=== PATIENT | female | born 1950 | race Caucasian/White ===

== ENCOUNTER 2018-11-03 14:42 | Emergency (ER) | payer OTHER ==
[2018-11-03 14:57] VITALS: BP 176/86
[2018-11-03] MEDS ORDERED: Ibuprofen TAB* 600 MG PO ONE (15:12)
--- NOTE | 2018-11-03 15:17 | UC ---
Hand/Wrist HPI - HPI Summary HPI Summary: 68-year-old woman comes in with a chief complaint of right wrist pain. Been going on for about 2 weeks. No known trauma. A lot worse over the last week. Abduction and abduction of the wrist make the pain the worst. Pain is on the distal radial aspect. It also hurts more when she flexes and extends her right thumb. ICE helps the pain briefly. - History Of Current Complaint Chief Complaint: UCUpperExtremity Stated Complaint: swollen WRIST Time Seen by Provider: 11/03/18 15:08 Pain Intensity: 5 - Allergies/Home Medications Allergies/Adverse Reactions: Allergies Allergy/AdvReac Type Severity Reaction Status Date / Time sulfamethoxazole Allergy See Comment Verified 11/03/18 14:59 [From Bactrim] trimethoprim [From Bactrim] Allergy See Comment Verified 11/03/18 14:59 Home Medications: Home Medications Glimepiride 2 mg PO DAILY 11/03/18 [History Confirmed 11/03/18] Vit A/Vit C/Vit E/Zinc/Copper [Preservision Areds Softgel] 1 each PO DAILY 11/03 [History Confirmed 11/03/18] PMH/Surg Hx/FS Hx/Imm Hx Previously Healthy: Yes - Surgical History Surgical History: Yes Surgery Procedure, Year, and Place: TUBAL LIGATION;. GALLBLADDER REMOVAL;. CANCEROUS TISSUE REMOVED FROM NOSE;CATARACT SURGERY X2 - Family History Known Family History: Positive: None, Non-Contributory - Social History Alcohol Use: Occasionally Substance Use Type: None Smoking Status (MU): Former Smoker Amount Used/How Often: 1/2 PPD Length of Time of Smoking/Using Tobacco: 20 YEARS Have You Smoked in the Last Year: No When Did the Patient Quit Smoking/Using Tobacco: 1995 Review of Systems All Other Systems Reviewed And Are Negative: Yes Constitutional: Positive: Negative Skin: Positive: Negative Eyes: Positive: Negative ENT: Positive: Negative Respiratory: Positive: Negative Cardiovascular: Positive: Negative Gastrointestinal: Positive: Negative Motor: Positive: Negative Neurovascular: Positive: Negative Musculoskeletal: Positive: Other: - SEE HPI Neurological: Positive: Negative Psychological: Positive: Negative Is Patient Immunocompromised?: No Physical Exam Triage Information Reviewed: Yes Appearance: Well-Appearing, No Pain Distress, Well-Nourished Vital Signs: Initial Vital Signs Temp 97.4 F 11/03/18 14:48 Pulse 78 11/03/18 14:48 Resp 16 11/03/18 14:48 BP 176/86 11/03/18 14:48 Pulse Ox 98 11/03/18 14:48 Vital Signs Reviewed: Yes Eye Exam: Normal Eyes: Positive: Conjunctiva Clear Neck exam: Normal Neck: Positive: Supple Respiratory: Positive: No respiratory distress Musculoskeletal: Positive: Other: - Right wrist is tender to palpation on the radial aspect to the base of the thumb and the distal radius. No erythema normal pulses normal capillary refill no sensation deficit. There is full range of motion of the fingers to include the thumb and also of the wrist. Pain is the worst with abduction and abduction of the wrist and palpation of the distal radius. Neurological Exam: Normal Neurological: Positive: Alert, Muscle Tone Normal Psychological Exam: Normal Psychological: Positive: Age Appropriate Behavior Skin Exam: Normal Hand/Wrist Course/Dx - Course Course Of Treatment: Order Information: WRIST RIGHT 3+ VWS. Accession Number: [id number]. CPT: 99929. HISTORY: PAIN RADIAL ASPECT. COMPARISONS: None. VIEWS: 3 , Frontal, lateral, and oblique views of the right wrist. FINDINGS: BONE DENSITY: Normal. BONES: There is no displaced fracture. JOINTS: There is no arthropathy. ALIGNMENT: There is no dislocation. SOFT TISSUES: Unremarkable. OTHER FINDINGS: None. IMPRESSION: NO ACUTE OSSEOUS INJURY. IF SYMPTOMS PERSIST, RECOMMEND REPEAT IMAGING. . <Electronically signed by Immanuel Griffin MD in OV> 11/03/18 1532. I discussed the x-ray report with the patient. For the wrist tendinitis nursing placed a cock-up splint and the patient was neurovascularly intact after placement of the splint. Plan will be ibuprofen and ice and rest. Spoke with the patient and she can get into physical therapy through [place] which is the plan. - Differential Dx/Diagnosis Provider Diagnosis: Right wrist tendonitis Discharge - Sign-Out/Discharge Documenting (check all that apply): Patient Departure All imaging exams completed and their final reports reviewed: Yes - Discharge Plan Condition: Stable Disposition: HOME Patient Education Materials: Tendinitis (ED) Referrals: Ele Jason MD [Primary Care Provider] - Additional Instructions: FOLLOW UP WITH YOUR DOCTOR. START PHYSICAL THERAPY. TAKE IBUPROFEN 600MG THREE TIMES A DAY WITH FOOD. GET RECHECKED FOR ANY WORSENING OF YOUR CONDITION OR QUESTIONS OR CONCERNS. - Billing Disposition and Condition Condition: STABLE Disposition: Home
== END 2018-11-03 16:02 | disposition home or self-care (01) ==
LOC: UCEAST 14:42
DX: M77.9 Enthesopathy, unspecified (principal); Z88.2 Allergy status to sulfonamides; Z87.891 Personal history of nicotine dependence
CPT/HCPCS: 99213; A9270-GY; G0463

== ENCOUNTER 2019-01-02 11:53 | Day surgery (SDC) | payer OTHER ==
[~2019-01-02 11:53] MED LIST: Buffered Lidocaine 1% SYRIN* 1 ML/SYRINGE INTRADERM ONE; Famotidine IV* 10 MG/ML 2 ML (20 mg) IV ONE; Lactated Ringers 1000 ML Bag* 1,000 ML IV SCH
[2019-01-02] MEDS ORDERED: Midazolam* 1 MG/ML 2 ML VIAL (2 MG) ONE (12:18)
[2019-01-02] MEDS ORDERED: fentaNYL* 50 MCG/ML 2 ML VIAL (100 MCG VIAL) ONE (12:18)
[2019-01-02] MEDS ORDERED: Famotidine IV* 10 MG/ML 2 ML (20 mg) ONE (12:23)
[2019-01-02] MEDS ORDERED: ceFAZolin 2 GM PREMIX in ORs 2 GM/50 ML BAG IVPB ONE (12:24)
[2019-01-02] MEDS ORDERED: Bupivacaine 0.5%* 50 ML VIAL ONE (14:05)
[2019-01-02] MEDS ORDERED: Lidocaine 1% INJ* 10 MG/ML 30 ML SDV ONE (14:05)
[2019-01-02] MEDS ORDERED: Betamethasone INJ* 6 MG/ML 5 ML VIAL (30 MG) ONE (14:29)
[2019-01-02] MEDS ORDERED: Ketorolac INJ* 30 MG/ML 1 ML VIAL ONE (14:32)
[2019-01-02] MEDS ORDERED: Ondansetron INJ* 2 MG/ML VIAL ONE (14:32)
[2019-01-02] MEDS ORDERED: Propofol* 10 MG/ML 20 ML BTL ONE (14:32)
[2019-01-02] MEDS ORDERED: Lidocaine 2% PF * 5 ML VIAL ONE (14:33)
[2019-01-02] MEDS ORDERED: Acetaminophen TAB* 325 MG PO PRN (15:23)
[2019-01-02 15:47] VITALS: BP 145/80
--- NOTE | 2019-01-02 21:17 | OP ---
DATE OF OPERATION: 01/02/19 - [facility] DATE OF : 46 SURGEON: Sterling Smith MD. CONSULTANT INTERNSHIP: GILBERT Copeland ANESTHESIOLOGIST: Dr. Ramírez. ANESTHESIA: Local MAC. PRE-OP DIAGNOSES: 1. Right de Quervain disease. 2. Right middle trigger finger. POST-OP DIAGNOSES: 1. Right wrist de Quervain disease. 2. Severe tenosynovitis, right first dorsal compartment tendon sheath. 3. Right middle trigger finger. OPERATIVE PROCEDURE: 1. Right wrist de Quervain release. 2. Right first dorsal compartment tenosynovectomy. 3. Right middle trigger finger steroid injection. ESTIMATED BLOOD LOSS: 2 mL. COMPLICATIONS: None. FINDINGS: See above and below. DESCRIPTION OF PROCEDURE: Natacha was seen in the preoperative holding area. The correct side, site, and procedure were identified. We came back to the operating room where the arm was prepped and draped in the usual fashion and time-out was performed. I did infiltrate Marcaine out on the operative area prior to draping. The arm was exsanguinated and the tourniquet was inflated to 250 mmHg. I made a 1 to 2 cm transverse incision over the first dorsal compartment tendon sheath just proximal to the radial styloid. Dissection was carried down bluntly and full- thickness flaps were raised off the tendon sheath. The tendon sheath was then incised along the course of the tendons. The tendon sheath was very thickened and it was extremely tight all about the tendons. Immediately upon incising the tendon sheath along the dorsal margin, I noted an abundant amount of tenosynovitis all about the first dorsal compartment tendon sheath tendons. It was difficult to see the tendons, there was so much tenosynovitis. I went ahead and took some time and I excised all of that tenosynovitis and I sent some of it off as a specimen. Once I had the tendons looking nice and clean, I went ahead and irrigated out the wound and skin was closed with 4-0 Monocryl and Steri-Strips. The right middle finger A1 tavo area was injected with 1 mL of 1% lidocaine and 6 mg of betamethasone. The steroid was put all around and in the tendon sheath. Once the procedure was performed, we dressed the wounds with soft dressings and the tourniquet was deflated. The hand pinked up immediately. She was taken to the recovery room in stable condition. [id number]/[facility] #: [id number] MINDA
== END 2019-01-02 16:04 | disposition home or self-care (01) ==
LOC: OR 11:53
PROVIDERS: ATTEND Orthopaedic Surgery Hand Surgery
DX: M65.4 Radial styloid tenosynovitis [de Quervain] (principal); M65.331 Trigger finger, right middle finger; G47.33 Obstructive sleep apnea (adult) (pediatric); E11.9 Type 2 diabetes mellitus without complications; Z79.84 Long term (current) use of oral hypoglycemic drugs; Z87.891 Personal history of nicotine dependence
CPT/HCPCS: 88304; J0690; J0702; J1885; J2250; J2405; J2704; J3010

== ENCOUNTER 2019-07-23 17:16 | Emergency (ER) | payer OTHER ==
[2019-07-23 17:21] VITALS: BP 194/77
--- NOTE | 2019-07-23 17:38 | ED ---
Lower Extremity - HPI Summary HPI Summary: Patient complains of chronic left knee pain since October 2018, worse for the past 2 days. Patient has been evaluated by orthopedics Dr. Curtis and Dr. Smith in October 2018 and May 2019 and was given injections, which patient states did not help. Patient denies new trauma, also states she played golf this morning. Denies any other pain, injury or symptoms. - History of Current Complaint Chief Complaint: EDExtremityLower Stated Complaint: LEFT KNEE INJURY PER PT Time Seen by Provider: 07/23/19 17:36 Hx Obtained From: Patient Mechanism Of Injury: Unknown Onset/Duration: Weeks Severity Initially: Mild Severity Currently: Severe Pain Intensity: 8 Pain Scale Used: 0-10 Numeric Timing: Constant Location: Is Discrete @ Character Of Pain: Dull, Aching, Throbbing Associated Signs And Symptoms: Positive: Swelling, Knee Pain Aggravating Factor(s): Standing, Ambulation, Movement Alleviating Factor(s): Rest, Elevation Able to Bear Weight: Yes - Allergies/Home Medications Allergies/Adverse Reactions: Allergies Allergy/AdvReac Type Severity Reaction Status Date / Time losartan Allergy MULTI Verified 01/02/19 12:31 SYSTEM PROBLEMS sulfamethoxazole Allergy See Comment Verified 01/02/19 12:31 [From Bactrim] trimethoprim [From Bactrim] Allergy See Comment Verified 01/02/19 12:31 PMH/Surg Hx/FS Hx/Imm Hx Endocrine/Hematology History: Reports: Hx Diabetes - Type II- ON ORAL MEDICATION FOR Denies: Hx Thyroid Disease Cardiovascular History: Reports: Hx Hypertension Denies: Hx Pacemaker/ICD Respiratory History: Reports: Hx Sleep Apnea Denies: Hx Asthma, Hx Chronic Obstructive Pulmonary Disease (COPD) GI History: Denies: Hx Ulcer Musculoskeletal History: Reports: Hx Arthritis - KNEES, LEFT GREAT TOE, Hx Bursitis - HX OF SHOULDER- IN THE PAST, Hx Tendonitis - SPORT RELATED IN THE PAST Sensory History: Reports: Hx Cataracts - BILATERAL, Hx Contacts or Glasses - GLASSES Denies: Hx Hearing Aid Opthamlomology History: Reports: Hx Cataracts - BILATERAL, Hx Contacts or Glasses - GLASSES EENT History: Denies: Hx Deafness Neurological History: Denies: Hx Dementia Psychiatric History: Denies: Hx Panic Disorder - Surgical History Surgery Procedure, Year, and Place: TUBAL LIGATION;. GALLBLADDER REMOVAL;. CANCEROUS TISSUE REMOVED FROM NOSE;CATARACT SURGERY X2 Hx Anesthesia Reactions: No Infectious Disease History: No Infectious Disease History: Denies: Hx Hepatitis, Hx Human Immunodeficiency Virus (HIV), Traveled Outside the [place] in Last 30 Days - Family History Known Family History: Positive: None, Non-Contributory - Social History Alcohol Use: Occasionally Alcohol Amount: GLASS OF WINE Substance Use Type: Reports: None Smoking Status (MU): Former Smoker Amount Used/How Often: 1/2 PPD X 20 YEARS Length of Time of Smoking/Using Tobacco: 20 YEARS Have You Smoked in the Last Year: No Review of Systems Constitutional: Negative Eyes: Negative ENT: Negative Cardiovascular: Negative Respiratory: Negative Gastrointestinal: Negative Genitourinary: Negative Musculoskeletal: Other Skin: Negative Neurological: Negative Psychological: Normal All Other Systems Reviewed And Are Negative: Yes Physical Exam - Summary Physical Exam Summary: Mild swelling to medial left knee. Tenderness to medial left knee. Full range of motion of left knee with pain. Nontender. PMS intact distally. No ecchymosis, erythema, deformity, extra warmth noted. Triage Information Reviewed: Yes Vital Signs On Initial Exam: Initial Vitals Temp Pulse Resp BP Pulse Ox 97.4 F 71 16 194/77 98 07/23/19 17:17 07/23/19 17:17 07/23/19 17:17 07/23/19 17:17 07/23/19 17:17 Vital Signs Reviewed: Yes Appearance: Positive: Well-Appearing Skin: Positive: Warm Head/Face: Positive: Normal Head/Face Inspection Eyes: Positive: Normal Neck: Positive: Supple Respiratory/Lung Sounds: Positive: Clear to Auscultation Cardiovascular: Positive: Normal Abdomen Description: Positive: Nontender Musculoskeletal: Positive: Normal Neurological: Positive: Normal Psychiatric: Positive: Normal AVPU Assessment: Alert - Bertha Coma Scale Best Eye Response: 4 - Spontaneous Best Motor Response: 6 - Obeys Commands Best Verbal Response: 5 - Oriented Coma Scale Total: 15 Diagnostics - Vital Signs Vital Signs Temp Pulse Resp BP Pulse Ox 07/23/19 17:17 97.4 F 71 16 194/77 98 - Laboratory Lab Statement: Any lab studies that have been ordered have been reviewed, and results considered in the medical decision making process. Lower Extremity Course/Dx - Course Course Of Treatment: Patient complains of chronic left knee pain since October 2018, worse for the past 2 days. Patient has been evaluated by orthopedics Dr. Curtis and Dr. Smith in October 2018 and May 2019 and was given injections, which patient states did not help. Patient denies new trauma, also states she played golf this morning. Denies any other pain, injury or symptoms. Vital signs within normal limits. No indication for x-ray. Advised patient follow up with orthopedics again. - Diagnoses Provider Diagnoses: Chronic pain of left knee Discharge ED - Sign-Out/Discharge Documenting (check all that apply): Patient Departure Patient Received Moderate/Deep Sedation with Procedure: No - Discharge Plan Condition: Stable Disposition: HOME Patient Education Materials: Knee Pain (ED) Referrals: Ele Jason MD [Primary Care Provider] - Joce Donato MD [Medical Doctor] - Additional Instructions: Follow-up with orthopedics tomorrow morning for further evaluation of left knee pain. Take naproxen 500 mg twice a day for the next 2 days. Ice 15 minutes every hour. - Billing Disposition and Condition Condition: STABLE Disposition: Home - Attestation Statements Provider Attestation: I was available for consult. This patient was seen by the TAYLOR. The patient was not presented to, seen by, or examined by me. Xavier Burnett MD
== END 2019-07-23 18:34 | disposition home or self-care (01) ==
LOC: ED 17:16
DX: G89.29 Other chronic pain (principal); M25.562 Pain in left knee; E11.9 Type 2 diabetes mellitus without complications; Z79.84 Long term (current) use of oral hypoglycemic drugs; I10 Essential (primary) hypertension; Z88.2 Allergy status to sulfonamides; Z88.8 Allergy status to other drugs, medicaments and biological substances; Z87.891 Personal history of nicotine dependence
CPT/HCPCS: 99282

== ENCOUNTER → 2019-09-07 05:38 | Day surgery (SDC) | payer OTHER ==
--- NOTE | 2019-08-25 10:33 | HP ---
HISTORY AND PHYSICAL: DATE OF ADMISSION/SURGERY: 09/07/19 DATE OF OFFICE VISIT: 08/25/19 SURGEON: Paula Curtis MD* (dictated by GILBERT Barber). PROCEDURE: Left knee arthroscopy with partial meniscectomy, possible chondroplasty, possible synovectomy, and possible plica excision. CHIEF COMPLAINT: Left knee pain. HISTORY OF PRESENT ILLNESS: Ms. Mcguire is a 69-year-old female with complaints of left knee pain. She has failed conservative treatment and an MRI confirmed a medial meniscus tear. She has elected to proceed with a left knee arthroscopy. PAST MEDICAL HISTORY: Macular degeneration, diabetes, and basal cell carcinoma. PAST SURGICAL HISTORY: Cholecystectomy, tubal ligation, and right wrist de Quervain's release. CURRENT MEDICATIONS: 1. Glimepiride 2 mg daily. 2. PreserVision AREDS plus multivitamin 2 tabs twice a day. ALLERGIES: To BACTRIM and LOSARTAN. FAMILY HISTORY: Diabetes. SOCIAL HISTORY: She is a 69-year-old female, she lives with her . She does not smoke or use drugs. She uses occasional alcohol. REVIEW OF SYSTEMS: A complete 14-point review of systems was reviewed with the patient, is positive for diabetes. She denies history of DVT, PE, hepatitis, HIV, or anesthesia problems. PHYSICAL EXAMINATION GENERAL: She is well developed, well nourished, in no acute distress. VITAL SIGNS: She stands 63 inches tall, weighs 186 pounds. Her blood pressure is 128/70, heart rate is 66. HEENT: Normocephalic, atraumatic. NECK: Supple. No palpable lymph nodes. PULMONARY: Lungs are clear to auscultation bilaterally. CARDIAC: Regular rate and rhythm. Strong S1, S2. ABDOMEN: Soft, nontender, nondistended. NEUROLOGIC: She is alert and oriented x3. MUSCULOSKELETAL: Left lower extremity: The skin is intact. There are no open wounds or abrasions. There is a moderate effusion of the left knee joint. Positive Apley's and Shelly's. Negative Katie's. She has palpable Ramirez's cyst. Range of motion is 10 to 120 degrees of flexion. No varus or valgus instability. She has a 2+ dorsalis pedis pulse. She is able to dorsiflex and plantarflex. ASSESSMENT AND PLAN: Ms. Mcguire is a 69-year-old female with complaints of left knee pain secondary to meniscus tear. She has failed conservative treatment and elected to proceed with a left knee arthroscopy with partial meniscectomy, possible chondroplasty, possible synovectomy, and possible plica excision. The surgery is scheduled for 09/07/[address] Curtis discussed the risks and benefits of the surgery at today's visit and all of her questions were answered. She will follow up with Dr. Curtis 2 weeks after the surgery. GILBERT BARBER [id number]/[facility] #: [id number] MTDChula
[~2019-09-07 05:38] MED LIST changes: +Acetaminophen TAB* 325 MG ONE; +Acetaminophen TAB* 325 MG PO PRN; +Bupivacaine 0.5%* 50 ML MDV VIAL ONE; +Dexamethasone IV* 4 MG/ML 1 ML (4 MG) ONE; +DiMENhydriNATE IV* 50 MG/ML VIAL IV PUSH PRN; +EPINEPHRINE 1 MG/ML 1 ML VIAL ONE; +Etomidate* 2 MG/ML 10 ML VIAL ONE; -Famotidine IV* 10 MG/ML 2 ML (20 mg) IV ONE; +Ketorolac INJ* 30 MG/ML 1 ML VIAL ONE; +Lidocaine 2% PF * 5 ML VIAL ONE; +Metoclopramide IV* 5 MG/ML 2 ML VIAL ONE; +Midazolam* 1 MG/ML 2 ML VIAL (2 MG) ONE; +Naloxone* 0.4 MG/ML 1 ML VIAL IV PRN; +Ondansetron INJ* 2 MG/ML VIAL ONE; +Phenylephrine 10 MG/ML VIAL* 1 ML VIAL ONE; +Propofol* 10 MG/ML 20 ML BTL ONE; +ROPIVACAINE 5 MG/ML 30 ML BTL (0.5%) ONE; +ceFAZolin 2 GM PREMIX in ORs 2 GM/50 ML BAG ONE; +fentaNYL* 50 MCG/ML 2 ML VIAL (100 MCG VIAL) ONE; +methylPREDNISolone ACETATE 80* 80 MG/ML 1 ML VIAL ONE; +oxyCODONE TAB* 5 MG TAB ONE; +oxyCODONE TAB* 5 MG TAB PO PRN
[2019-09-07] MEDS: fentaNYL* 50 MCG/ML 2 ML VIAL (100 MCG VIAL) IV PRN ×2 (08:48→09:14)
[2019-09-07 10:56] VITALS: BP 140/75
--- NOTE | 2019-09-07 22:04 | OP ---
OPERATIVE REPORT: DATE OF OPERATION: 09/07/19 DATE OF : 46 SURGEON: Paula Curtis MD. GROCERY STORE MANAGER: GILBERT Calvillo. Mr. Martin did help throughout the procedure with preparation of the leg, wound retraction, manipulat ion of the knee, and wound closure. ANESTHESIOLOGIST: Dr. Sotelo. ANESTHESIA: General. PRE-OP DIAGNOSES: 1. Left knee medial meniscal tear. 2. Yojj-dj-ugkcpldp osteoarthritis. POST-OP DIAGNOSES: 1. Left knee medial meniscal tear. 2. Whgevqfe-xf-ttdcma degenerative osteoarthritis. OPERATIVE PROCEDURE: Left knee arthroscopy with partial medial meniscectomy. COMPLICATIONS: None. SPECIMENS: None. ESTIMATED BLOOD LOSS: Less than 25 cc. BRIEF HISTORY/INDICATIONS: Ms. Mcguire is a 69-year-old female who had the acute onset of mechanica l symptoms involving the medial joint line over the last 3 to 6 months. She failed conservative henry tment. MRI confirmed a medial meniscal tear. Due to continued pain and failure of conservative treat ment, she elected to undergo left knee arthroscopy with partial meniscectomy. Informed consent was o btained from the patient. She understood the risks of surgery included but were not limited to bleed ing, infection, damage to nearby structures, continued pain, need for further surgery, retear of the meniscus, progression of arthritis, stroke, heart attack, blood clot, and . She wished to proce ed. INTRAOPERATIVE FINDINGS: Intraoperatively, the patient had a complex parrot-beak type tear of the po steromedial meniscus. This is in the white-red zone. This involved the posterior 50% of the medial meniscus. Unfortunately, she was noted to have grade 3 and 4 Outerbridge cartilage changes in the me dial and patellofemoral compartments. There was exposed subchondral bone along the trochlear groove of the femur as well as along the medial femoral condyle and medial tibial plateau. DESCRIPTION OF PROCEDURE: Ms. Mcguire was identified in the preanesthesia unit. Her left lower extr emity was marked as the correct operative side. Informed consent was signed and placed in the chart. The patient was taken to the operating room and placed under anesthesia without complications. The left lower extremity was prepped and draped in the usual sterile fashion. Preop time-out was made t o correctly identify the patient, side, and site. Appropriate perioperative antibiotics were given w ithin 1 hour of the incision. A 0.5 cm standard anterolateral portal incision was made with a 10-blade and carried down through the capsule. A trocar was introduced. As soon as the light and water sources were turned on, there was immediate visualization of the suprapatellar pouch. A tour of the knee joint was performed. The willson prapatellar pouch showed no obvious abnormalities. The patellofemoral joint had exposed subchondral bone along the trochlear groove of the femur and the medial patellar facet. These were grade 3 and 4 Outerbridge cartilage changes. The medial gutter showed no significant plica or loose body. The me dial compartment showed a complex tear in the medial meniscus with a tear involving the posterior 50% of the medial meniscus. This was mainly in the white-red zone with some anterior displacement. The medial femoral condyle and medial tibial plateau had some exposed subchondral bone and grade 3 and 4 Outerbridge cartilage changes. The ACL and PCL appeared to be intact. The knee was placed in a figu re-of-four position. No obvious lateral meniscal tear was noted. No significant degenerative change s were noted in the lateral compartment. Under direct visualization, a medial portal incision was made with a 10-blade. A probe was introduce d and a second tour of the knee joint was performed. There were no additional findings noted. The shaver and straight biter were used to perform partial medial meniscectomy. The tear was carefull y excised. A smooth border of the medial meniscus was obtained in the white-red zone. Further probi ng of the medial meniscus showed no additional tear. The knee was copiously irrigated with sterile s fifi. All instruments were carefully removed. The incisions were closed using 3-0 nylon suture. The incisions were covered with sterile Xeroform, 4x4s, and Webril. Lance wrap and cold pack were plac ed over this. The patient's anesthesia was reversed without difficulty. She was taken to the PACU i n stable condition. Intended weightbearing will be weightbearing as tolerated. Intended DVT prophyl axis will be aspirin. She will follow up in 2 weeks' time for suture removal. [id number]/[facility] #: [id number]
== END | disposition home or self-care (01) ==
LOC: OR 05:38
PROVIDERS: ATTEND Orthopaedic Surgery Adult Reconstructive Orthopaedic Surgery
DX: S83.242A Other tear of medial meniscus, current injury, left knee, initial encounter (principal); X58.XXXA Exposure to other specified factors, initial encounter; Y92.9 Unspecified place or not applicable; M17.12 Unilateral primary osteoarthritis, left knee; G47.33 Obstructive sleep apnea (adult) (pediatric); Z85.828 Personal history of other malignant neoplasm of skin; E11.9 Type 2 diabetes mellitus without complications; Z79.84 Long term (current) use of oral hypoglycemic drugs; R01.1 Cardiac murmur, unspecified
CPT/HCPCS: A9270-GY; J0690; J1040; J1100; J1885; J2250; J2405; J2704; J2765; J2795; J3010; J3490

== ENCOUNTER 2019-12-10 10:13 | Emergency (ER) | payer OTHER ==
[2019-12-10 10:29] VITALS: BP 148/64
[2019-12-10 10:51] LABS: Influenza A Molecular NEGATIVE (Negative); Influenza B Molecular NEGATIVE (Negative)
--- NOTE | 2019-12-10 10:51 | UC ---
Throat Pain/Nasal Leonard HPI - HPI Summary HPI Summary: 69-year-old woman comes in with a chief complaints of upper respiratory tract infection symptoms for 2 days. She has some rhinorrhea cough with yellow sputum production. Does have a sore throat. Has tried some pgrz-dln-yavvvkf medicines which does help. - History of Current Complaint Chief Complaint: UCGeneralIllness Stated Complaint: SORE THROAT Time Seen by Provider: 12/10/19 10:38 Pain Intensity: 4 - Allergies/Home Medications Allergies/Adverse Reactions: Allergies Allergy/AdvReac Type Severity Reaction Status Date / Time losartan Allergy MULTI Verified 12/10/19 10:24 SYSTEM PROBLEMS sulfamethoxazole Allergy See Comment Verified 12/10/19 10:24 [From Bactrim] trimethoprim [From Bactrim] Allergy See Comment Verified 12/10/19 10:24 PMH/Surg Hx/FS Hx/Imm Hx Previously Healthy: Yes Endocrine History: Diabetes - Surgical History Surgical History: Yes Surgery Procedure, Year, and Place: TUBAL LIGATION;. GALLBLADDER REMOVAL;. CANCEROUS TISSUE REMOVED FROM NOSE;. BILATERAL CATARACT SURGERY. RIGHT WRIST SURGERY [facility] 2019. L [facility] 2019 - Family History Known Family History: Positive: None, Non-Contributory - Social History Alcohol Use: None Alcohol Amount: GLASS OF WINE Substance Use Type: None Smoking Status (MU): Former Smoker Amount Used/How Often: 1/2 PPD X 20 YEARS Length of Time of Smoking/Using Tobacco: 20 YEARS Have You Smoked in the Last Year: No When Did the Patient Quit Smoking/Using Tobacco: 1995 Review of Systems All Other Systems Reviewed And Are Negative: Yes Constitutional: Positive: Other - SEE HPI Skin: Positive: Negative Eyes: Positive: Negative ENT: Positive: Sore Throat, Nasal Discharge, Sinus Congestion Respiratory: Positive: Cough Cardiovascular: Positive: Negative Gastrointestinal: Positive: Negative Motor: Positive: Negative Neurovascular: Positive: Negative Musculoskeletal: Positive: Negative Neurological: Positive: Negative Psychological: Positive: Negative Is Patient Immunocompromised?: No Physical Exam Triage Information Reviewed: Yes Appearance: No Pain Distress, Well-Nourished, Ill-Appearing - MILD Vital Signs: Initial Vital Signs Temp 98 F 12/10/19 10:24 Pulse 84 12/10/19 10:24 Resp 18 12/10/19 10:24 BP 148/64 12/10/19 10:24 Pulse Ox 98 12/10/19 10:24 Vital Signs Reviewed: Yes Eye Exam: Normal Eyes: Positive: Conjunctiva Clear ENT: Positive: Pharyngeal erythema, Nasal congestion, Nasal drainage, TMs normal Neck: Positive: Supple Respiratory: Positive: Lungs clear, Normal breath sounds, No respiratory distress Cardiovascular: Positive: RRR Musculoskeletal: Positive: Strength Intact, ROM Intact Neurological: Positive: Alert, Muscle Tone Normal Psychological: Positive: Age Appropriate Behavior Skin Exam: Normal Throat Pain/Nasal Course/Dx - Differential Dx/Diagnosis Provider Diagnosis: Upper respiratory infection Discharge ED - Sign-Out/Discharge Documenting (check all that apply): Patient Departure All imaging exams completed and their final reports reviewed: No Studies - Discharge Plan Condition: Stable Disposition: HOME Patient Education Materials: Upper Respiratory Infection (ED) Referrals: Ele Jason MD [Primary Care Provider] - Additional Instructions: FOLLOW UP WITH YOUR DOCTOR IF NOT COMPLETELY IMPROVED. GET REEVALUATED SOONER IF NOT IMPROVED OR WORSE OR ANY QUESTIONS OR CONCERNS. - Billing Disposition and Condition Condition: STABLE Disposition: Home
== END 2019-12-10 11:08 | disposition home or self-care (01) ==
LOC: UCEAST 10:13
DX: J06.9 Acute upper respiratory infection, unspecified (principal); E11.9 Type 2 diabetes mellitus without complications; Z87.891 Personal history of nicotine dependence; Z88.8 Allergy status to other drugs, medicaments and biological substances; Z88.2 Allergy status to sulfonamides
CPT/HCPCS: 87651; 99211; G0463

== ENCOUNTER 2024-12-15 07:53 | Observation (INO) ==
[~2024-12-15 07:53] MED LIST changes: -Acetaminophen TAB* 325 MG ONE; -Acetaminophen TAB* 325 MG PO PRN; -Buffered Lidocaine 1% SYRIN* 1 ML/SYRINGE INTRADERM ONE; -Bupivacaine 0.5%* 50 ML MDV VIAL ONE; -Dexamethasone IV* 4 MG/ML 1 ML (4 MG) ONE; -DiMENhydriNATE IV* 50 MG/ML VIAL IV PUSH PRN; -EPINEPHRINE 1 MG/ML 1 ML VIAL ONE; -Etomidate* 2 MG/ML 10 ML VIAL ONE; -Ketorolac INJ* 30 MG/ML 1 ML VIAL ONE; -Lactated Ringers 1000 ML Bag* 1,000 ML IV SCH; -Lidocaine 2% PF * 5 ML VIAL ONE; -Metoclopramide IV* 5 MG/ML 2 ML VIAL ONE; -Midazolam* 1 MG/ML 2 ML VIAL (2 MG) ONE; +NS 0.45% 1000 ml BAG 1,000 ML IV SCH; +Naloxone 0.4 mg VIAL 0.4 mg/ml 1 ml VIAL IV PRN; -Naloxone* 0.4 MG/ML 1 ML VIAL IV PRN; -Ondansetron INJ* 2 MG/ML VIAL ONE; -Phenylephrine 10 MG/ML VIAL* 1 ML VIAL ONE; -Propofol* 10 MG/ML 20 ML BTL ONE; -ROPIVACAINE 5 MG/ML 30 ML BTL (0.5%) ONE; -ceFAZolin 2 GM PREMIX in ORs 2 GM/50 ML BAG ONE; -fentaNYL* 50 MCG/ML 2 ML VIAL (100 MCG VIAL) ONE; -methylPREDNISolone ACETATE 80* 80 MG/ML 1 ML VIAL ONE; -oxyCODONE TAB* 5 MG TAB ONE; -oxyCODONE TAB* 5 MG TAB PO PRN
[2024-12-15] MEDS ORDERED: ceFAZolin 2 GM PREMIX 2 GM/50 ML BAG ONE (08:26)
[2024-12-15] MEDS ORDERED: Tranexamic Acid 1 GM/100ML BAG 2,000 MG/200 ML BAG IV ONE (08:26)
[2024-12-15] MEDS ORDERED: Phenylephrine IV 10 MG/ML 1 ml VIAL ONE (08:38)
[2024-12-15] MEDS ORDERED: fentaNYL 100 mcg/2 ml 50 MCG/ML VIAL ONE ×2 (08:44→13:13)
[2024-12-15] MEDS ORDERED: ROPIVACAINE 5 MG/ML 30 ML BTL (0.5%) ONE (08:44)
[2024-12-15] MEDS ORDERED: Midazolam 5 mg/5 ml VIAL 1 mg/ml 5 ml VIAL (5 mg) ONE (08:44)
[2024-12-15] MEDS ORDERED: Ondansetron 4 mg VIAL 2 MG/ML 2 ml VIAL ONE ×2 (08:48→13:13)
[2024-12-15] MEDS ORDERED: Dexamethasone IV 4 MG/ML VIAL 1 ml VIAL ONE (08:48)
[2024-12-15 08:52] LABS: Rapid COVID-19 Molecular Undetected (Undetected)
[2024-12-15] MEDS: Acetaminophen IV 1 GM/100ML 1,000 MG/100 ML BAG IV ONE (08:57)
[2024-12-15] MEDS: Buffered Lidocaine 1% SYRIN 1 ml INTRADERM ONE (08:58)
[2024-12-15] MEDS: Lactated Ringers 1000 ml BAG 1,000 ML IV SCH ×2 (08:59→15:33)
[2024-12-15] MEDS ORDERED: Ondansetron 4 mg VIAL 2 MG/ML 2 ml VIAL IV PRN (11:56)
[2024-12-15] MEDS ORDERED: Calcium Carb (TUMS) 500 mg CHEW TAB PO PRN (11:56)
[2024-12-15] MEDS ORDERED: Lactulose 30 ml UDC PO PRN (11:56)
[2024-12-15] MEDS ORDERED: Morphine 2 MG/ML SYRINGE IV PRN (11:56)
[2024-12-15] MEDS ORDERED: Magnesium Hydroxide LIQ 30 ML UDC PO PRN (11:56)
[2024-12-15] MEDS ORDERED: Ondansetron ODT 4 mg TAB 4 MG TAB PO PRN (11:56)
[2024-12-15] MEDS ORDERED: Propofol 10 MG/ML 20 ML BTL ONE (12:46)
[2024-12-15] MEDS: Ondansetron 4 mg VIAL 2 MG/ML 2 ml VIAL IV PRN (13:15)
[2024-12-15] MEDS: fentaNYL 100 mcg/2 ml 50 MCG/ML VIAL IV PRN (13:17)
[2024-12-15] MEDS: ceFAZolin 2 GM PREMIX 2 GM/50 ML BAG IV SCH (19:55)
[2024-12-15] MEDS: Magnesium Hydroxide LIQ 30 ML UDC PO SCH (22:49)
[2024-12-16 06:41] LABS: Hemoglobin 10.6 g/dL (11.5-14.3); Mean Platelet Volume 8.3 fL (7.5-11.2); Platelet Count 164 10^3/uL (150-450)
[2024-12-16 06:59] LABS: Calcium 8.1 mg/dL (8.6-10.3); Creatinine, Serum 0.96 mg/dL (0.51-0.95); Potassium 4.6 mmol/L (3.5-5.0); eGFR CKD-EPI 61.3 (>60)
[2024-12-16] MEDS: Vitamin THERAPEUTIC TAB PO SCH (09:53)
[2024-12-16] MEDS: Multivitamins/Minera Areds(NF) CAP PO SCH (09:58)
[2024-12-16 11:34] VITALS: BP 144/48
== END 2024-12-16 14:10 | disposition home or self-care (01) ==
LOC: OR 07:53 → SSU 07:53
PROVIDERS: ADMIT Orthopaedic Surgery Adult Reconstructive Orthopaedic Surgery; ATTEND Orthopaedic Surgery Adult Reconstructive Orthopaedic Surgery